=== PATIENT | female | born 1940 | race Caucasian/White ===

== ENCOUNTER 2017-08-29 10:07 | Emergency (ER) | payer MEDICARE ==
[2017-08-29 11:10] VITALS: BP 120/77
[2017-08-29] MEDS ORDERED: Ondansetron ODT TAB* 4 MG PO ONE (11:36)
--- NOTE | 2017-08-29 11:43 | UC ---
Abdominal Pain Female HPI - HPI Summary HPI Summary: Patient presents with a past medical history of HTN, and hypothyroidism. She presents today with complaints of nausea, vomiting and diarrhea onset was yesterday morning. She states is began with one small episode of diarrhea, followed by extreme nausea, and persistent dry heaving all day and into last night and this morning. She states she has not been able to eat, drink or handle any solid food x 24+ hours, and she cannot even take her mediations. She reports that at this time her nausea feels a little better. She denies chest pain, abdominal pain, dyspnea, sweating, weakness, lightheadedness, dizziness. She denies any arm, jaw or shoulder pain. - History of Current Complaint Chief Complaint: UCGI Stated Complaint: VOMITING Time Seen by Provider: 08/29/17 11:22 Hx Obtained From: Patient Hx Last Menstrual Period: na Onset/Duration: Sudden Onset, Lasting Hours Timing: Constant Severity Initially: Severe Severity Currently: Moderate Pain Intensity: 3 Associated Signs and Symptoms: Positive: Nausea, Vomiting, Diarrhea - Risk Factors Ectopic Risk Factor: Negative Ovarian Torsion Risk Factor: Negative Allergies/Adverse Reactions: Allergies Allergy/AdvReac Type Severity Reaction Status Date / Time epinephrine Allergy Intermediate Rash Verified 08/29/17 11:11 CHOLESTEROL MEDICATION AdvReac INCREASE Uncoded 08/29/17 11:11 BLOOD SUGAR INJECTION FOR XRAY AdvReac N/V Uncoded 08/29/17 11:11 MANY PAIN MEDICATIONS AdvReac Nausea And Uncoded 08/29/17 11:11 Vomiting SPICY FOODS AdvReac Unknown Uncoded 08/29/17 11:11 Reaction Details PMH/Surg Hx/FS Hx/Imm Hx Previously Healthy: Yes Endocrine History: Hypothyroidism Cardiovascular History: Hypertension Other History Of: Negative For: HIV, Hepatitis B, Hepatitis C, Anticoagulant Therapy - Surgical History Surgical History: Yes Surgery Procedure, Year, and Place: THYROID.,TUBAL, LEFT BREAST BIOPSY. LEFT SHOULDER REPLACEMENT-2012. OVARIES/TUBES REMOVED 12/2015. prolapse uterus- 2016. bladdere repair 2017 - Family History Known Family History: Positive: Cardiac Disease, Hypertension - Social History Occupation: Retired Lives: Alone Alcohol Use: None Substance Use Type: None Smoking Status (MU): Former Smoker Amount Used/How Often: SOCIAL SMOKER-20 YEARS Have You Smoked in the Last Year: No When Did the Patient Quit Smoking/Using Tobacco: 40 YEARS AGO - Immunization History Most Recent Influenza Vaccination: 2015 Most Recent Tetanus Shot: up to date Review of Systems Constitutional: Negative Skin: Negative Eyes: Negative ENT: Negative Respiratory: Negative Cardiovascular: Negative Gastrointestinal: Vomiting, Diarrhea, Nausea Genitourinary: Negative Motor: Negative Neurovascular: Negative Musculoskeletal: Negative Neurological: Negative Psychological: Negative Is Patient Immunocompromised?: No All Other Systems Reviewed And Are Negative: Yes Physical Exam Triage Information Reviewed: Yes Appearance: Well-Appearing Vital Signs: Initial Vital Signs Temp 99.2 F 08/29/17 11:03 Pulse 108 08/29/17 11:03 Resp 18 08/29/17 11:03 BP 120/77 08/29/17 11:03 Pulse Ox 99 08/29/17 11:03 Vital Signs Reviewed: Yes Eye Exam: Normal ENT Exam: Normal Neck exam: Normal Neck: Positive: 1 Respiratory Exam: Normal Cardiovascular: Positive: RRR, No Murmur, Tachycardia Abdominal Exam: Normal Musculoskeletal Exam: Normal Neurological Exam: Normal Psychological Exam: Normal Skin Exam: Normal Abd Pain Female Course/Dx - Course Course Of Treatment: Patient presents with a past history of HTN and hypothyroidism. VS on arrival were BP 120/77, P-108, T-99.2, R-18, and O2sat 99 % on RA. I apprecicate that her BP is normal, she is slighly Tacycardic, LGT, she has been ill, and not able to take her medications, I also feel she has mild dehydration due to persisent vomiting. Although she states her symptoms have improved since being here, and as I discussed with her I have concerns given her age, and risk factors that her symtpoms could be related to a cardiac symtpoms and I really thought she should go directly to the ER for labs, complete cardiac work-up, IV fluids and nausea medications. She and her daughter both were in the room and both verbalized understanding of my concerns , and still did not want to go to the ER at this time. - Differential Dx/Diagnosis Differential Diagnosis: Other - vomiting diarrhea nausea Provider Diagnoses: nausea. vomiting. diarrhea. tachycardia Discharge - Discharge Plan Condition: Stable Disposition: AGAINST MEDICAL ADVICE Prescriptions: Ondansetron TAB* [Zofran 4 MG Tab*] 4 mg PO Q6H PRN #14 tab PRN Reason: nasuea Patient Education Materials: Acute Nausea and Vomiting (ED) Referrals: Lynn Wiley NP [Primary Care Provider] - Additional Instructions: I recommend you go directly to the ER.
== END 2017-08-29 12:11 | disposition left against medical advice (07) ==
LOC: UCEAST 10:07
DX: R11.2 Nausea with vomiting, unspecified (principal); R19.7 Diarrhea, unspecified; R00.0 Tachycardia, unspecified; I10 Essential (primary) hypertension; E03.9 Hypothyroidism, unspecified; Z53.21 Procedure and treatment not carried out due to patient leaving prior to being seen by health care provider
CPT/HCPCS: 87502; 93005; 99212; A9270-GY; G0463

== ENCOUNTER 2017-12-11 13:11 | Emergency (ER) | payer MEDICARE ==
[2017-12-11 13:21] VITALS: BP 142/55
--- NOTE | 2017-12-11 13:26 | UC ---
Back Pain HPI - HPI Summary HPI Summary: Patient is a 77 year old female , with past medical history of hypertension who present today with left low back pain since yesterday after a fall at her house. After her fall, she called her daughter who lives 5 minutes away and helped her get up, was down for about 20 min, No LOC . She is not sure but might have hit the table. Had some shoulder and hip pain yesterday which has resolved. Denies any fever, chills, cough chest pain or shortness of breath . Denies any abdominal pain , nausea or vomiting , diarrhea or constipation. Denies any radicular symptoms, numbness , tingling , incontinence, saddle anesthesia , motor or sensory disturbance. He has tried over the counter ibuprofen with some relief. - History of Current Complaint Chief Complaint: UCBackPain Stated Complaint: BACK PAIN Time Seen by Provider: 12/11/17 13:20 Hx Obtained From: Patient Hx Last Menstrual Period: na ?: No Onset/Duration: Sudden Onset Timing: Constant Severity Initially: Moderate Severity Currently: Moderate Pain Intensity: 6 Pain Scale Used: 0-10 Numeric Character: Sharp, Throbbing, Spasmodic Aggravating Factor(s): Movement Alleviating Factor(s): Rest, OTC Meds Associated Signs And Symptoms: Negative: Weakness, Numbness, Tingling, Abdominal Pain, Flank Pain, Bladder Incontinence, Bowel Incontinence - Allergies/Home Medications Allergies/Adverse Reactions: Allergies Allergy/AdvReac Type Severity Reaction Status Date / Time epinephrine Allergy Intermediate Rash Verified 12/11/17 13:21 CHOLESTEROL MEDICATION AdvReac INCREASE Uncoded 12/11/17 13:21 BLOOD SUGAR INJECTION FOR XRAY AdvReac N/V Uncoded 12/11/17 13:21 MANY PAIN MEDICATIONS AdvReac Nausea And Uncoded 12/11/17 13:21 Vomiting SPICY FOODS AdvReac Unknown Uncoded 12/11/17 13:21 Reaction Details Home Medications: Home Medications Cholecalciferol (Vitamin D3) [Vitamin D3] 2,000 unit PO 12/11/17 [History] PMH/Surg Hx/FS Hx/Imm Hx Previously Healthy: Yes Endocrine History: Other - s/p thyroidectomy Other Endocrine History: Negative Cardiovascular History: Hypertension Other Respiratory History: Negative Other GI/ History: Negative Other Neurological History: Negative Other Psychological History: Negative Other Cancer History: Negative Other History Of: Negative For: HIV, Hepatitis B, Hepatitis C, Anticoagulant Therapy - Surgical History Surgical History: Yes Surgery Procedure, Year, and Place: THYROID.,TUBAL, LEFT BREAST BIOPSY. LEFT SHOULDER REPLACEMENT-2012. OVARIES/TUBES REMOVED 12/2015. prolapse uterus- 2016. bladdere repair 2017 - Family History Known Family History: Positive: Cardiac Disease, Hypertension - Social History Alcohol Use: Rare Substance Use Type: None Smoking Status (MU): Former Smoker Amount Used/How Often: SOCIAL SMOKER-20 YEARS Have You Smoked in the Last Year: No When Did the Patient Quit Smoking/Using Tobacco: 40 YEARS AGO - Immunization History Most Recent Influenza Vaccination: 2014 Most Recent Tetanus Shot: up to date Review of Systems Constitutional: Negative Skin: Negative Eyes: Negative ENT: Negative Respiratory: Negative Cardiovascular: Negative Gastrointestinal: Negative Genitourinary: Negative Motor: Negative Neurovascular: Negative Musculoskeletal: Other: - left low back pain Neurological: Negative Psychological: Negative Is Patient Immunocompromised?: No All Other Systems Reviewed And Are Negative: Yes Physical Exam Triage Information Reviewed: Yes Appearance: Well-Appearing, Pain Distress - mild Vital Signs: Initial Vital Signs Temp 99.2 F 12/11/17 13:16 Pulse 83 12/11/17 13:16 Resp 18 12/11/17 13:16 BP 142/55 12/11/17 13:16 Pulse Ox 98 12/11/17 13:16 Vital Signs Reviewed: Yes Eyes: Positive: Conjunctiva Clear ENT: Positive: Hearing grossly normal. Negative: Nasal congestion, Nasal drainage, Trismus, Muffled voice, Hoarse voice Neck exam: Normal Neck: Positive: Supple, Nontender Respiratory: Positive: Chest non-tender, Lungs clear, Normal breath sounds. Negative: Crackles, Rhonchi, Stridor, Wheezing Cardiovascular Exam: Normal Cardiovascular: Positive: RRR, No Murmur, Pulses Normal Abdomen Description: Positive: Nontender, No Organomegaly. Negative: Distended , Guarding Bowel Sounds: Positive: Present Musculoskeletal: Positive: Other: - Spine: No loss of the normal lumbar lordosis or step-off. No midline tenderness throughout the spine. There is left lumbar paraspinal tenderness spine noted. There is no tenderness of the costovertebral angle bilaterally. Stability: No obvious instability. Strength : 5/5 ROM: Limited and painful ROM in all planes Special Tests: Straight Leg raise test is negative bilaterally Neurological: Positive: Alert Psychological: Positive: Age Appropriate Behavior Skin Exam: Normal Skin: Negative: rashes Back Pain Course/Dx - Course Course Of Treatment: During her visit today, we obtained X-rays which showed arthritis. No radiographic evidence for acute fracture or malalignment.Chronic appearing mild anterior compression fracture of the T12 vertebral body. We discussed the findings and her symptoms appear to be due to muscle strain.We discussed further plan of care and treatment options. Patient expressed understanding . - Differential Dx/Diagnosis Differential Diagnosis/HQI/PQRI: Arthritis, Strain, Sprain Provider Diagnoses: Low back pain Discharge - Sign-Out/Discharge Documenting (check all that apply): Discharge/Admit/Transfer - Discharge Plan Condition: Stable Disposition: HOME Patient Education Materials: Low Back Strain (ED), Lower Back Exercises (ED) Referrals: Lynn Wiley NP [Primary Care Provider] - Additional Instructions: Start taking ibuprofen for pain as needed. Follow up with your primary care doctor in 1 week. Patients blood pressure slightly high in Urgent care today , plan follow up with PCP for better control Return to Urgent care / ER if symptoms get worse. - Billing Disposition and Condition Condition: STABLE Disposition: HOME Images Front/Back of Body, Lg ([place]): 1 - left lumbar
--- NOTE | 2017-12-11 14:38 | RAD ---
Indication: LEFT side pain post fall. Comparison: December 24, 2016 DEXA scan documenting osteoporosis. June 11, 2013 chest radiograph. Technique: AP, lateral, and oblique views lumbar sacral spine. Report: Negative for spondylolisthesis at any level. Mild anterior compression deformity of the T12 vertebral body new compared with the 2013 chest radiograph. No discrete cortical disruption or gross trabecular impaction to favor an acute fracture. The remaining vertebral bodies within the [id number] are normal in height. Multilevel degenerative spondylosis and facet joint osteoarthritis. Disc space narrowing is most prominent at L2-L3 moderately severe. Facet joint osteoarthritis is moderately severe throughout. Unremarkable paraspinal soft tissue contours. Atherosclerotic calcification of the abdominal aorta. IMPRESSION: 1. No radiographic evidence for acute fracture or malalignment. 2. Chronic appearing mild anterior compression fracture of the T12 vertebral body.
== END 2017-12-11 14:34 | disposition home or self-care (01) ==
LOC: UCEAST 13:11
DX: M54.5 Low back pain (principal); I10 Essential (primary) hypertension; E89.0 Postprocedural hypothyroidism; Z96.612 Presence of left artificial shoulder joint; Z82.49 Family history of ischemic heart disease and other diseases of the circulatory system; Z87.891 Personal history of nicotine dependence
CPT/HCPCS: 72110; 99211; G0463